=== PATIENT | female | born 1995 | race Caucasian/White ===

== ENCOUNTER 2016-04-14 18:15 | Emergency (ER) | payer OTHER ==
[~2016-04-14] VITALS: Ht 167.6 cm; Wt 55.7 kg
[2016-04-14 18:33] VITALS: TEMP 37.4; Ht 167.6 cm; Wt 55.7 kg
[2016-04-14] MEDS ORDERED: SODIUM CHLORIDE 0.9% 1000ML 500 ML IV STA (20:13)
[2016-04-14] MEDS ORDERED: IBUPROFEN 600 MG TAB PO STA (20:13)
[2016-04-14] MEDS ORDERED: ACETAMINOPHEN 325 MG TAB PO STA (20:13)
[2016-04-14] MEDS ORDERED: SODIUM CHLORIDE 0.9% 1000ML 1,000 ML IV STA (20:13)
--- NOTE | 2016-04-14 20:24 | EMERGENCY ROOM VISIT NOTE ---
History Report prepared by Chris: Nile Mtz Under the Supervision of: Dr. Edmund Carrillo M.D. First contact with patient: 20:04 Chief Complaint: PAIN (GENERALIZED) Stated Complaint: CHEST PAIN WHEN BREATHING, PAIN IN NECK/LEFT WRIST History of Present Illness The patient is a 20 year old female who presents to the Emergency Room with complaints of persistent generalized pain beginning about 10 hour ago. She reports she was at work at [employer] when she began to have some left sided neck pain. She then began to develop left wrist pain which is worsened with movement. She denies having any recent falls or trauma, and has not recently exercised. The patient reports she then began to have chest pain, which is worsened with deep breathing. She has had some shortness of breath with the chest pain, and rates is about a 5/10 in severity. She has not taken anything for her pain. She indicates that the neck pain has since mostly resolved. The patient denies having any cough, but states that she wakes with mucus in the throat in the morning that resolves throughout the day. She also denies having any fever. She has not recently travelled, and denies having any personal history of clots in her legs or lungs, though reports having a family history of blood clots. The patient has no known drug allergies, and notes taking Lamictal for mood stabilization. She denies taking any control. Source of History: patient Onset: about 10 hours ago Position: neck, chest, wrist (left) Symptom Intensity: chest: 5/10 in severity Quality: other (pain) Timing: other (persistent) Modifying Factors (Worsening): other (chest: deep breaths; wrist: movement) Associated Symptoms: + SOB (with chest pain), No cough, No fevers Review of Systems See HPI for pertinent positives & negatives. A total of 10 systems reviewed and were otherwise negative. Past Medical & Surgical Medical Problems: (1) No Known Active Medical Problems Family History Blood clots Social History Smoking Status: Never Smoker Occupation Status: [employer] student Current/Historical Medications Scheduled Lamotrigine (Lamictal), 150 MG PO BID Allergies Coded Allergies: No Known Allergies (Unverified , 04/14/16) Physical Exam Vital Signs Date Time Temp Pulse Resp B/P Pulse Ox O2 Delivery O2 Flow Rate FiO2 04/14/16 23:37 83 16 110/61 97 Room Air 04/14/16 20:55 103 04/14/16 20:36 99 20 126/86 04/14/16 18:33 37.4 114 18 130/75 99 Room Air Physical Exam GENERAL: Patient is in no acute distress. HEENT: No acute trauma, normocephalic atraumatic, mucous membranes moist, no nasal congestion, no scleral icterus. NECK: No stridor, no adenopathy, no meningismus, trachea is midline. LUNGS: Clear to auscultation bilaterally, no wheeze, no rhonchi, breath sounds equal. HEART: Without murmurs gallops or rubs, regular rate and rhythm. CHEST: Tenderness across anterior chest wall over the sternum. ABDOMEN: Soft, nontender, bowel sounds positive, no hernias, no peritonitis. EXTREMITIES: No cyanosis or edema, full range of motion of all the joints without pain or difficulty, no signs for acute trauma. NEUROLOGIC: Oriented x 3, no acute motor or sensory deficits, no focal weakness. SKIN: No rash, no jaundice, no diaphoresis. Medical Decision & Procedures ER Provider Diagnostic Interpretation: Radiology results stated below per my review and radiologist interpretation: CHEST ONE VIEW PORTABLE FINDINGS: The cardiac and mediastinal contours are normal. There is no evidence of focal pulmonary consolidation. There is no evidence of failure. No pleural effusions are visualized. IMPRESSION: No active disease in the chest. Electronically signed by: Buddy Mathis M.D. 04/14/2016 8:26 PM Dictated Date/Time: 04/14/2016 8:25 PM Laboratory Results 04/14/16 21:36 Test 04/14/16 21:36 D-Dimer 290 ug/L FEU (0-500) Anion Gap 13.0 mmol/L (3-11) Est Creatinine Clear Calc Drug Dose 124.2 ml/min Estimated GFR () 148.6 Estimated GFR (Non- 128.2 BUN/Creatinine Ratio 16.8 (10-20) Calcium Level 8.8 mg/dl (8.5-10.1) Troponin I < 0.015 ng/ml (0-0.045) Laboratory results reviewed by me. Medications Administered Medications (Trade) Dose Ordered Sig/Cronel Route Start Time Stop Time Status Last Admin Dose Admin Sodium Chloride 500 ml @ 999 mls/hr Q31M STAT IV 04/14/16 20:13 04/14/16 20:43 DC 04/14/16 20:31 999 MLS/HR Sodium Chloride (Nss 1000ml) 1,000 ml @ 200 mls/hr Q5H STAT IV 04/14/16 20:13 04/15/16 00:45 DC 04/14/16 20:30 200 MLS/HR Ibuprofen (Motrin Tab) 600 mg NOW STAT PO 04/14/16 20:13 04/14/16 20:16 DC 04/14/16 20:28 600 MG Acetaminophen (Tylenol Tab) 650 mg NOW STAT PO 04/14/16 20:13 04/14/16 20:16 DC 04/14/16 20:28 650 MG ECG Indication: other (generalized pain) Rate (beats per minute): 101 Rhythm: sinus tachycardia Findings: no ectopy, other (mild diffuse early repolarization) ED Course 2007: The patient was evaluated in room C11B. A complete history and physical exam was performed. 2013: Ordered Acetaminophen 650 mg PO, Ibuprofen 600 mg PO, NSS 1,000 ml @ 200 mls/hr IV, and NSS 500 ml @ 999 mls/hr IV. 0000: Reevaluated the patient. Discussed results and discharge instructions: She verbalized understanding and agreement. The patient is ready for discharge. Medical Decision Differentials include musculoskeletal pain, PE, pericarditis, aortic dissection , pneumothorax, and WI. The patient presents with precordial, pleuritic chest pain. Chest film shows no mediastinal widening, pneumonia or pneumothorax. EKG shows a sinus rhythm, there was no acute ischemia. Cardiac enzyme testing times one is not suggestive of acute cardiac injury. D-dimer testing is negative. With a negative d-dimer and my low suspicion for PE, I will stop the workup for this diagnosis. Renal panel testing does not show renal failure or significant electrolyte abnormality. Patient received IV saline, oral Motrin and oral Tylenol. She is comfortable. The patient's chest pain does seem reproducible, given her unrevealing workup, I suspect the pain is musculoskeletal. She is being discharged home. Impression Primary Impression: Precordial chest pain Scribe Attestation The scribe's documentation has been prepared under my direction and personally reviewed by me in its entirety. I confirm that the note above accurately reflects all work, treatment, procedures, and medical decision making performed by me. Departure Information Dispostion Home / Self-Care Referrals No Doctor, Assigned (PCP) Patient Instructions My [facility] Additional Instructions motrin 600 mg 3x per day for 5 days heat to the chest wall may help tylenol for additional pain control rest heart and lung testing today was all ok
--- NOTE | 2016-04-14 20:27 | DIAGNOSTIC IMAGING REPORT ---
CHEST ONE VIEW PORTABLE CLINICAL HISTORY: Atypical chest pain COMPARISON STUDY: No previous studies for comparison. FINDINGS: The cardiac and mediastinal contours are normal. There is no evidence of focal pulmonary consolidation. There is no evidence of failure. No pleural effusions are visualized.[ IMPRESSION: No active disease in the chest. Electronically signed by: Buddy Mathis M.D. 04/14/2016 8:26 PM Dictated Date/Time: 04/14/2016 8:25 PM
[2016-04-14] MEDS ORDERED: LAMO150T32 PO (21:13)
[2016-04-14 22:18] LABS: BLOOD UREA NITROGEN 11 mg/dl (7-18); BUN/CREATININE RATIO 16.8 (10-20); CALCIUM 8.8 mg/dl (8.5-10.1); CARBON DIOXIDE 21 mmol/L (21-32); CHLORIDE 102 mmol/L (98-107); CREATININE 0.63 mg/dl (0.60-1.20); GLUCOSE 89 mg/dl (70-99); POTASSIUM 3.4 mmol/L (3.5-5.1); SODIUM 136 mmol/L (136-145)
[2016-04-14 23:37] VITALS: BP 110/61; PULSE 83; O2SAT 97
== END 2016-04-15 00:28 | disposition home or self-care (01) ==
LOC: C.EDB 18:18 → C.EDC 04-15 00:28
DX: R07.2 Precordial pain (principal); Z79.899 Other long term (current) drug therapy